=== PATIENT | female | born 1970 | race Caucasian/White ===

== ENCOUNTER 2023-04-04 11:17 | Outpatient (CLI) | payer OTHER, SELFPAY | END 2023-04-04 11:18 | disposition home or self-care (01) | PROVIDERS: PCP Family Medicine; Referring Provider Family Medicine; Visit Provider Nurse Practitioner | DX: R39.9 Unspecified symptoms and signs involving the genitourinary system (principal); R39.89 Other symptoms and signs involving the genitourinary system | CPT/HCPCS: 87086 ==